=== PATIENT | female | born 1985 | race Caucasian/White ===

== ENCOUNTER → 2018-01-13 | Outpatient (CLI) | payer OTHER | LOC: MRI 10:02 | DX: M89.311 Hypertrophy of bone, right shoulder (principal) ==

== ENCOUNTER 2020-08-18 20:43 | Emergency (ER) | payer OTHER ==
[~2020-08-18] VITALS: Ht 157.5 cm; Wt 86.2 kg
[2020-08-18 20:44] VITALS: BP 133/97
[2020-08-19] MEDS ORDERED: DEPAKOTE ER500 M1 PO (21:59)
[2020-08-19] MEDS ORDERED: HYDROXYZINE HCL50 MG PO (22:00)
[2020-08-19] MEDS ORDERED: LISINOPRIL2.5 MG PO (22:00)
[2020-08-19] MEDS ORDERED: JANUMET XR 1001 EACH PO (22:00)
[2020-08-19] MEDS ORDERED: MINOCYCLINE 5050 M1 PO (22:01)
[2020-08-19] MEDS ORDERED: OMEPRAZOLE40 MG PO (22:01)
[2020-08-19] MEDS ORDERED: MELOXICAM15 MG PO (22:01)
[2020-08-19] MEDS ORDERED: SPIRONOLACTONE50 MG PO (22:02)
[2020-08-19] MEDS ORDERED: PRAVACHOL 20 MG20 M1 PO (22:02)
[2020-08-19] MEDS ORDERED: VENLAFAXINE HC150 M1 PO (22:02)
[2020-08-19] MEDS ORDERED: VRAYLAR1.5 MG PO (22:03)
[2020-08-19] MEDS ORDERED: EC-NAPROXEN500 MG PO (23:00)
== END 2020-08-18 21:26 | disposition home or self-care (01) ==
LOC: ER 20:43
DX: H92.03 Otalgia, bilateral (principal); G43.909 Migraine, unspecified, not intractable, without status migrainosus; E11.9 Type 2 diabetes mellitus without complications; Z88.2 Allergy status to sulfonamides; Z87.891 Personal history of nicotine dependence

== ENCOUNTER 2020-08-19 21:51 | Emergency (ER) | payer OTHER ==
[~2020-08-19] VITALS: Ht 157.5 cm; Wt 81.7 kg
[2020-08-19] MEDS ORDERED: DEPAKOTE ER500 M1 PO (21:59)
[2020-08-19] MEDS ORDERED: HYDROXYZINE HCL50 MG PO (22:00)
[2020-08-19] MEDS ORDERED: LISINOPRIL2.5 MG PO (22:00)
[2020-08-19] MEDS ORDERED: JANUMET XR 1001 EACH PO (22:00)
[2020-08-19] MEDS ORDERED: MELOXICAM15 MG PO (22:01)
[2020-08-19] MEDS ORDERED: MINOCYCLINE 5050 M1 PO (22:01)
[2020-08-19] MEDS ORDERED: OMEPRAZOLE40 MG PO (22:01)
[2020-08-19] MEDS ORDERED: SPIRONOLACTONE50 MG PO (22:02)
[2020-08-19] MEDS ORDERED: VENLAFAXINE HC150 M1 PO (22:02)
[2020-08-19] MEDS ORDERED: PRAVACHOL 20 MG20 M1 PO (22:02)
[2020-08-19] MEDS ORDERED: VRAYLAR1.5 MG PO (22:03)
[2020-08-19] MEDS ORDERED: EC-NAPROXEN500 MG PO (23:00)
[2020-08-19 23:10] VITALS: BP 109/72
== END 2020-08-19 23:10 | disposition home or self-care (01) ==
LOC: ER 21:51
DX: G43.909 Migraine, unspecified, not intractable, without status migrainosus (principal); E11.9 Type 2 diabetes mellitus without complications; Z88.2 Allergy status to sulfonamides; Z87.891 Personal history of nicotine dependence